=== PATIENT | male | born 1980 | race Hispanic/Latino ===

== ENCOUNTER 2023-07-30 19:43 | Inpatient (IN) | payer OTHER ==
[~2023-07-30] VITALS: Ht 162.6 cm; Wt 68.0 kg
[2023-07-30] VITALS (21 sets, daily range): BP systolic 78–133; BP diastolic 36–91
[~2023-07-30 19:43] MED LIST: BACTRIM DS1 TAB PO; CEPHALEXIN500 MG PO; GENTAMICIN0.1 % EX; LORTAB 1010 MG PO
[2023-07-30 20:12] LABS: BASO% 0.6 % (0-3); EOS% 0.1 % (0-8); GFR FOR AFR.AMER. > 60 ML/MIN (>=60 (CALC)); GFR OTHER RACES > 60 ML/MIN (>=60 (CALC)); HEMATOCRIT 47.6 % (39.0-50.0); HEMOGLOBIN 15.6 g/dl (14.0-18.0); IMMATURE GRANULOCYTES 0.3 % (0.0-5.0); LYMPH% 30.2 % (15-41); MEAN CELL VOLUME 86.7 fL CALC (80.0-100.0); MEAN CORPUSCULAR HGB 28.4 pG CALC (26.0-32.0); MEAN CORPUSCULAR HGB CONC 32.8 g/dL CAL (32.0-36.0); MONO% 4.6 % (2-13); NEUT# 6.39 thou/uL (1.82-7.42); NEUT% 64.2 % (42-76); RED BLOOD COUNT 5.49 mill/uL (4.70-6.10); RED CELL DISTRI WIDTH 13.1 % (11.5-15.5)
[2023-07-30 20:16] LABS: URINE BILIRUBIN - DIPSTICK Negative (NEGATIVE); URINE BLOOD DIPSTICK Moderate (NEGATIVE); URINE CLARITY Clear; URINE COLOR Yellow; URINE GLUCOSE - DIPSTICK 100 mg/dL (NEGATIVE); URINE KETONE Negative (NEGATIVE); URINE LEUK ESTERASE Negative (Negative); URINE NITRITE - DIPSTICK Negative (Negative); URINE PH 5.5 (4.5-8.0); URINE PROTEIN - DIPSTICK 100 mg/dL (NEG-TRACE); URINE UROBILINOGEN - DIPSTICK 0.2 E.U./dL (0.2)
[2023-07-30 20:24] LABS: URINE SQUAMOUS EPITHELIAL CELL FEW EPI/hpf (0-FEW)
[2023-07-30 20:27] LABS: ALBUMIN 4.9 g/dL (3.2-5.0); ALKALINE PHOSPHATASE 108 u/l (38-126); ANION GAP 24 (6-22 (CALC)); BILIRUBIN, TOTAL 0.6 mg/dL (0.2-1.3); BUN 8 mg/dL (9-20); BUN/CREATININE RATIO 8 (12-20 (CALC)); CARBON DIOXIDE 16 mmol/l (22-30); CHLORIDE 102 mmol/l (95-108); CREATININE 0.9 mg/dL (0.7-1.3); ETHYL ALCOHOL 298 mg/dl (0-30); GFR FOR AFR.AMER. > 60 ML/MIN (>=60 (CALC)); GFR OTHER RACES > 60 ML/MIN (>=60 (CALC)); POTASSIUM 3.8 mmol/l (3.5-5.1); SGOT/AST 43 u/l (17-59); SODIUM 138 mmol/l (137-146); TOTAL PROTEIN 8.1 g/dL (6.3-8.2)
[2023-07-30 20:32] LABS: ACT PARTIAL THROMBO TIME 24.2 SECONDS (20.0-32.5); INTERNATIONAL NORMALIZED RATIO 1.1 RATIO (0.7-1.3); PROTHROMBIN TIME 10.4 SECONDS (9.0-12.5)
[2023-07-31] VITALS (40 sets, daily range): BP systolic 83–158; BP diastolic 41–109
== END 2023-07-31 10:00 | disposition left against medical advice (07) | DRG 82 ==
LOC: ED 19:43 → EDBD 19:43 → ED-I 21:05 → ED 21:05 → ED-I 23:20 → ED 23:37 → ED-I 23:38
PROVIDERS: Family Medicine; ADMIT Student in an Organized Health Care Education/Training Program; ATTEND Student in an Organized Health Care Education/Training Program
PROC: 0BH17EZ Insertion of Endotracheal Airway into Trachea, Via Natural or Artificial Opening (ICD-10-PCS; principal; 2023-07-30)
PROC: 5A1935Z Respiratory Ventilation, Less than 24 Consecutive Hours (ICD-10-PCS; 2023-07-30)
PROC: 0T9B70Z Drainage of Bladder with Drainage Device, Via Natural or Artificial Opening (ICD-10-PCS; 2023-07-30)
DX: S06.9X9A Unspecified intracranial injury with loss of consciousness of unspecified duration, initial encounter (principal); J18.9 Pneumonia, unspecified organism; S00.03XA Contusion of scalp, initial encounter; S61.412A Laceration without foreign body of left hand, initial encounter; S80.212A Abrasion, left knee, initial encounter; S00.01XA Abrasion of scalp, initial encounter; F10.129 Alcohol abuse with intoxication, unspecified; I10 Essential (primary) hypertension; Y90.8 Blood alcohol level of 240 mg/100 ml or more; V19.40XA Pedal cycle driver injured in collision with unspecified motor vehicles in traffic accident, initial encounter; Y93.55 Activity, bike riding
CPT/HCPCS: J1650; S0164

== ENCOUNTER 2023-09-20 16:57 | Emergency (ER) | payer SELFPAY ==
[~2023-09-20] VITALS: Ht 162.6 cm; Wt 68.0 kg
[2023-09-20 17:49] LABS: URINE BILIRUBIN - DIPSTICK Negative (NEGATIVE); URINE BLOOD DIPSTICK Trace-lysed (NEGATIVE); URINE GLUCOSE - DIPSTICK Negative (NEGATIVE); URINE KETONE Negative (NEGATIVE); URINE LEUK ESTERASE Negative (NEGATIVE); URINE NITRITE - DIPSTICK Negative (Negative); URINE PH 5.5 (4.5-8.0); URINE PROTEIN - DIPSTICK Negative (NEG-TRACE); URINE UROBILINOGEN - DIPSTICK 0.2 E.U./dL (0.2)
[2023-09-20 17:58] LABS: URINE COLOR Yellow
[2023-09-20] MEDS ORDERED: LIDOcaine HCl 1% (Local Anesth.) 20 ML VIAL IM STA (18:48)
[2023-09-20] MEDS ORDERED: AZITHROMYCIN 250 MG/TAB PO ONE (18:50)
[2023-09-20] MEDS ORDERED: cefTRIAXone SODIUM 1 GM/VIAL SDV IM ONE (18:50)
[2023-09-20 20:00] VITALS: BP 162/115
[2023-09-20 20:15] VITALS: BP 206/120
[2023-09-20 20:18] VITALS: BP 177/90
== END 2023-09-20 20:18 | disposition home or self-care (01) | DRG 696 ==
LOC: ED 16:57
PROVIDERS: Nurse Practitioner
DX: R30.0 Dysuria (principal); Z20.2 Contact with and (suspected) exposure to infections with a predominantly sexual mode of transmission

== ENCOUNTER 2024-02-24 12:39 | Emergency (ER) | payer SELFPAY ==
[~2024-02-24] VITALS: Ht 162.6 cm; Wt 68.0 kg
[2024-02-24] MEDS ORDERED: FAMOTIDINE 20 MG/TAB PO ONE (12:50)
[2024-02-24] MEDS ORDERED: CLINDAMYCIN HCL 150 MG CAP PO ONE (12:50)
[2024-02-24] MEDS ORDERED: CLEOCIN150 M1 PO (12:51)
[2024-02-24] MEDS ORDERED: PEPCID20 MG PO (12:51)
[2024-02-24 13:15] VITALS: BP 138/89
== END 2024-02-24 13:31 | disposition home or self-care (01) | DRG 607 ==
LOC: ED 12:39
DX: S80.862A Insect bite (nonvenomous), left lower leg, initial encounter (principal); L03.116 Cellulitis of left lower limb; W57.XXXA Bitten or stung by nonvenomous insect and other nonvenomous arthropods, initial encounter

== ENCOUNTER 2024-03-26 08:19 | Emergency (ER) | payer SELFPAY ==
[~2024-03-26] VITALS: Ht 162.6 cm; Wt 77.0 kg
[~2024-03-26 08:19] MED LIST changes: +CLEOCIN150 M1 PO; +PEPCID20 MG PO
[2024-03-26 08:27] VITALS: BP 153/88
[2024-03-26 08:30] VITALS: BP 153/89
[2024-03-26 08:45] VITALS: BP 142/101
[2024-03-26] MEDS ORDERED: CLINDAMYCIN HY300 MG PO (08:56)
[2024-03-26 09:00] VITALS: BP 142/101
== END 2024-03-26 09:20 | disposition home or self-care (01) | DRG 156 ==
LOC: ED 08:19
PROC: 0H91XZZ Drainage of Face Skin, External Approach (ICD-10-PCS; principal; 2024-03-26)
DX: J34.0 Abscess, furuncle and carbuncle of nose (principal)

== ENCOUNTER 2024-09-16 12:23 | Emergency (ER) | payer SELFPAY ==
[~2024-09-16] VITALS: Ht 162.6 cm; Wt 68.0 kg
[2024-09-16] VITALS (9 sets, daily range): BP systolic 135–145; BP diastolic 90–99
[~2024-09-16 12:23] MED LIST changes: +CLINDAMYCIN HY300 MG PO
[2024-09-16] MEDS ORDERED: ORPHENADRINE CITRATE 30 MG/ML AMP IM ONE (13:25)
[2024-09-16] MEDS ORDERED: NEURONTIN100 MG PO (15:54)
[2024-09-16] MEDS ORDERED: PREDNISONE10 MG PO (15:54)
[2024-09-16] MEDS ORDERED: METHOCARBAMOL500 MG PO (15:54)
[2024-09-16] MEDS ORDERED: TRAMADOL HYDROC50 M1 PO (15:54)
== END 2024-09-16 16:12 | disposition home or self-care (01) | DRG 159 ==
LOC: ED 12:23
DX: R68.84 Jaw pain (principal); M79.602 Pain in left arm; R20.2 Paresthesia of skin; T14.90XS Injury, unspecified, sequela; V09.9XXS Pedestrian injured in unspecified transport accident, sequela
CPT/HCPCS: J1100; J2360